=== PATIENT | male | born 1960 | race Hispanic/Latino ===

== ENCOUNTER 2024-12-02 16:25 | Emergency (ER) | payer OTHER ==
[2024-12-02] MEDS ORDERED: KETOROLAC 30 MG/ML INJ ONE (16:55)
--- NOTE | 2024-12-02 17:18 | RAD REPORT ---
EXAMINATION: Hip Left 2 View CLINICAL INDICATION: Male, 64 years old. PAIN COMPARISON: No prior exam. FINDINGS: No acute fracture. No malalignment/dislocation. Mild left acetabular degenerative changes. Other: n/a IMPRESSION: No acute osseous abnormality.
--- NOTE | 2024-12-02 17:19 | RAD REPORT ---
EXAMINATION: Pelvis CLINICAL INDICATION: Male, 64 years old. left groin pain COMPARISON: No prior exam. FINDINGS: No acute fracture. Presumed chronic deformity at the right femoral head with flattening and moderate right acetabular degenerative changes. There is some sclerosis at the right femoral head. No malalignment/dislocation. Other: n/a IMPRESSION: No acute osseous abnormality. Flattening right femoral head may be sequela of remote avascular necrosis and subchondral collapse.
[2024-12-02 17:38] LABS: Potassium 3.9 mEq/L (3.5-5.1)
[2024-12-02 17:39] LABS: Anion Gap 9.9 mEq/L (5.0-15.0); Bilirubin Total 0.5 mg/dL (0.2-1.0)
[2024-12-02 17:40] LABS: Albumin 2.9 g/dL (3.4-5.0); Albumin/Globulin Ratio 0.7 (1.1-1.8); Globulin 4.2 g/dL (2.3-3.5); Protein, Total 7.1 g/dL (6.4-8.2)
[2024-12-02 17:47] LABS: Hematocrit 38.9 % (39.6-49.0); Hemoglobin 13.3 g/dL (13.6-17.9); MCH 34.2 pg (27.0-35.0); MCHC 34.1 g/dL (32.0-36.0); MCV 100.3 fL (80-100); Platelets 288 thou/uL (152-406); RBC Red Blood Cell Count 3.88 M/uL (4.33-5.43)
[2024-12-02 17:48] LABS: Absolute Lymphocytes (CBC) 1.4 K/uL (0.7-4.9); Absolute Monocytes 0.5 K/uL (0.1-1.3); Absolute Neutrophil 4.8 K/uL (1.8-8.0); Basophils % 0.5 % (0-1.3); Eosinophils % 0.3 % (0-4.4); Lymphocytes % 20.5 % (15.3-44.8); Monocytes % 6.7 % (3.3-12.3)
--- NOTE | 2024-12-02 17:49 | RAD REPORT ---
EXAM: Lower Extremity Arterial Bilat HISTORY: SWELLING COMPARISON: None TECHNIQUE: Multiplanar grayscale and color Doppler images were obtained and a bilateral lower extrem ity arterial ultrasound. Spectral analysis of the Doppler waveforms were performed. FINDINGS: No significant calcified plaque is seen in either lower extremity. Right lower extremity: Common femoral artery: Triphasic Superficial femoral artery: Triphasic Popliteal artery: Triphasic Posterior tibial artery: Triphasic Dorsalis pedis artery: Triphasic Left lower extremity: Common femoral artery: Triphasic Superficial femoral artery: Triphasic Popliteal artery: Triphasic Posterior tibial artery: Triphasic Dorsalis pedis artery: Triphasic IMPRESSION: No significant arterial abnormality of the extremities.
--- NOTE | 2024-12-02 17:49 | RAD REPORT ---
EXAMINATION: US LOWER EXTREMITY VENOUS DOPPLER BILATERAL CLINICAL INDICATION: Male, 64 years old.Pain;Swelling TECHNIQUE: Complete bilateral duplex sonography of the lower extremity veins was performed. The exami nation included compression for vein patency, color Doppler imaging and flow augmentation in response to distal compression of the distal external iliac, common femoral, femoral, popliteal, alexy tera, tibial and great saphenous veins. [id number]. COMPARISON: No prior exams FINDINGS: Duplex sonography imaging demonstrates all deep examined to be fully compressible with spontaneous, p hasic and augmented flow bilaterally. IMPRESSION: No evidence of deep venous thrombosis seen in either lower extremity.
--- NOTE | 2024-12-02 18:56 | EDPHYS ---
Physician Documentation [facility] Name: Alvin Salazar Age: 64 yrs Sex: Male : 1960 Arrival Date: 12/02/2024 Time: 16:25 Bed 6 Private MD: ED Physician Giovanni Gordon HPI: 12/02 16:50 This 64 yrs old Male presents to ER via Ambulatory with complaints of Groin cp Pain, Leg Pain. 16:50 The patient presents with pain, that is acute. The complaints affect the left groin and cp left hip. 16:50 Context: resulted from an unknown cause, the patient can fully bear weight, the patient cp is able to ambulate, with mild difficulty, Problem is a result from a previous injury: No. Onset: The symptoms/episode began/occurred 4 week(s) ago. Associated signs and symptoms: Pertinent positives: calf tenderness, swelling, Pertinent negatives fever, warmth. 16:50 Severity of symptoms: in the emergency department the symptoms are unchanged, despite cp home interventions. Historical: - Allergies: 16:36 PENICILLINS; ll1 - PMHx: 16:36 Hypertensive disorder; ll1 - PSHx: 16:36 None; ll1 - Immunization history:: Adult Immunizations up to date. - Infectious Disease History:: Denies. - Social history:: Smoking status: Patient denies any tobacco usage or history of. ROS: 16:55 MS/extremity: Positive for pain, tenderness, of the left groin and left hip, Negative cp for decreased range of motion, deformity, paresthesias, injury, 16:55 Abdomen/GI: Negative for abdominal pain, cp 16:55 Eyes: Negative for injury, pain, redness, and discharge, cp 16:55 Constitutional: Negative for body aches, chills, fever, 16:55 ENT: Negative for drainage from ear(s), ear pain, sore throat, difficulty swallowing, difficulty handling secretions, 16:55 Respiratory: Negative for cough, shortness of breath, wheezing, 16:55 : Negative for urinary symptoms, 16:55 Neuro: Negative for weakness, 16:55 Back: Negative for pain at rest, pain with movement, cp 16:55 All other systems are negative, Exam: 17:00 Constitutional: The patient appears in no acute distress, alert, awake, non-toxic, well cp developed, well nourished, 17:00 Head/Face: Normocephalic, atraumatic. cp 17:00 Eyes: Periorbital structures: appear normal, Conjunctiva: normal, no exudate, no injection, Sclera: no appreciated abnormality, Lids and lashes: appear normal, bilaterally, 17:00 ENT: External ear(s): are unremarkable, Nose: is normal, Mouth: Lips: moist, Oral mucosa: moist, 17:00 Neck: ROM/movement: is normal, is supple, without pain, no range of motions limitations, 17:00 Chest/axilla: Inspection: normal, 17:00 Cardiovascular: Rate: normal, Rhythm: regular, 17:00 Respiratory: the patient does not display signs of respiratory distress, Respirations: cp normal, no use of accessory muscles, no retractions, 17:00 Abdomen/GI: Inspection: abdomen appears normal, Palpation: abdomen is soft and non-tender, in all quadrants, 17:00 Back: pain, is absent, ROM is normal, cp 17:00 Musculoskeletal/extremity: Extremities: noted in the left leg: pain, ROM: full passive range of motion, in the left hip, Joints: the left hip displays pain, tenderness, 17:00 Neuro: Orientation: to person, place \T\ time. Mentation: is normal, Gait: is steady, cp Vital Signs: 16:34 Weight 83.91 kg; Height 5 ft. 4 in. ; ll1 16:39 BP 134 / 89; Pulse 72; Resp 16; Temp 97.7(TE); Pulse Ox 99% on R/A; Pain 3/10; ss 16:41 Weight 83.91 kg; Height 5 ft. 4 in. ; ss 18:41 BP 130 / 91; Pulse 95; Resp 16; Pulse Ox 94% on R/A; ss 16:41 Body Mass Index 31.75 (83.91 kg, 162.56 cm) ss 16:39 Pain Scale: Adult ss MDM: 16:32 Medical Screening Exam initiated cp 17:00 Differential diagnosis: dislocation, fracture, DVT. cp 18:55 Data reviewed: vital signs, nurses notes, lab test result(s), radiologic studies, plain cp films, ultrasound, and as a result, I will discharge patient. 12/03 14:12 Care significantly affected by the following chronic conditions: Hypertension. cp Counseling: I had a detailed discussion with the patient and/or guardian regarding the historical points, exam findings, and any diagnostic results supporting the discharge/admit diagnosis, lab results, radiology results, the need for outpatient follow up, a orthopedic surgeon, to return to the emergency department if symptoms worsen or persist or if there are any questions or concerns that arise at home. Response to treatment: the patient's symptoms have mildly improved after treatment, and as a result, I will discharge patient. 12/02 16:44 Order name: Urinalysis W/Microscopic cp 12/02 16:44 Order name: CBC with Diff; Complete Time: 18:01 cp 12/02 18:02 Interpretation: Normal except: RBC 3.88; HGB 13.3; HCT 38.9; MCV 100.3. cp 12/02 16:44 Order name: CMP; Complete Time: 18:01 cp 12/02 18:43 Interpretation: Normal except: BUN 6; AST 14; ALT 12; ALK 155; ALB 2.9; GLOB 4.2; A/G cp 0.7. 12/02 16:44 Order name: Lipase; Complete Time: 18:01 cp 12/02 16:44 Order name: XRAY Pelvis; Complete Time: 18:01 cp 12/02 18:02 Interpretation: Report reviewed. cp 12/02 16:44 Order name: XRAY Hip LEFT 2 view; Complete Time: 18:01 cp 12/02 16:44 Order name: US Lower Extremity Arterial Bilateral; Complete Time: 18:01 cp 12/02 17:00 Order name: Extrem Venous W Compress Herman; Complete Time: 18:01 EDMS 12/02 16:44 Order name: IV Saline Lock; Complete Time: 16:58 cp 12/02 16:44 Order name: Labs collected and sent; Complete Time: 16:58 cp Administered Medications: 12/02 16:58 Drug: Ketorolac IVP 15 mg IVP once Route: IVP; Site: right forearm; bp 19:30 Follow up: Response: No adverse reaction [email or web address] Disposition: 12/03 09:06 Co-signature as Attending Physician, Giovanni Gordon MD I reviewed the patient's care rn provided by the Advanced Practice Provider and agree with the diagnosis and treatment plan. Disposition Summary: 12/02/24 18:56 Discharge Ordered Notes: Location: Home cp Problem: new cp Symptoms: have improved cp Condition: Stable cp Diagnosis - Pain in left hip cp - Pain in left leg cp Followup: cp - With: Juan Lundberg MD - When: 1 week - Reason: Recheck today's complaints Discharge Instructions: - Discharge Summary Sheet cp - Joint Pain cp - Musculoskeletal Pain cp - Hip Pain cp Forms: - Medication Reconciliation Form cp - Antibiotic Education cp - Prescription Opioid Use cp - Patient Portal Instructions cp - Leadership Thank You Letter cp Prescriptions: - Diclofenac Sodium 75 mg Oral Tablet Sustained Release - take 1 tablet ORAL route 2 times per day; 30 tablet; Refills: 0, Product cp Selection Permitted Signatures: Dispatcher [employer] EDMS Giovanni Gordon MD MD rn Alexis Trent PA PA cp Sadi Bansal RN RN Sabine Reyes RN RN ll1 Gosia Garcia RN RN [email or web address] Corrections: (The following items were deleted from the chart) 12/02 16:44 16:44 Lower Extremity Arterial Bilat+US.RAD.BRZ ordered. EDMS EDMS 16:44 16:44 Lower Extremity Arterial Bilat+US.RAD.BRZ ordered. EDMS EDMS 12/03 14:10 12/02 17:00 Back: pain, that is moderate, of the sacrum, cp cp 12/03 14:11 12/02 16:55 All other systems are negative, cp cp
--- NOTE | 2024-12-02 18:56 | ER ---
Nurse's Notes [facility] Name: Alvin Salazar Age: 64 yrs Sex: Male : 1960 Arrival Date: 12/02/2024 Time: 16:25 Bed 6 Private MD: Diagnosis: Pain in left hip;Pain in left leg Presentation: 12/02 16:34 Chief complaint: Patient states: L groin pain that radiates into knee area for 3-4 ll1 weeks. Noticed swelling to B ankles for 1 week. No fever. Coronavirus screen: Client denies travel out of the [place] in the last 14 days. At this time, the client does not indicate any symptoms associated with coronavirus-19. Ebola Screen: Patient denies travel to an Ebola-affected area in the 21 days before illness onset. Initial Sepsis Screen: Does the patient meet any 2 criteria? No. Patient's initial sepsis screen is negative. Does the patient have a suspected source of infection? No. Patient's initial sepsis screen is negative. Risk Assessment: Do you want to hurt yourself or someone else? Patient reports no desire to harm self or others. Onset of symptoms was November 01, 2024. 16:34 Method Of Arrival: Ambulatory ll1 16:34 Acuity: JIMMY 3 ll1 Triage Assessment: 16:36 General: Appears uncomfortable, Behavior is calm, cooperative, appropriate for age. ll1 Pain: Complains of pain in left leg. Musculoskeletal: Reports BLE swelling. Historical: - Allergies: 16:36 PENICILLINS; ll1 - PMHx: 16:36 Hypertensive disorder; ll1 - PSHx: 16:36 None; ll1 - Immunization history:: Adult Immunizations up to date. - Infectious Disease History:: Denies. - Social history:: Smoking status: Patient denies any tobacco usage or history of. Screenin:41 Abuse screen: Denies threats or abuse. Denies injuries from another. Nutritional ss screening: No deficits noted. Tuberculosis screening: Never had TB. 19:31 [facility] ED Fall Risk Assessment (Adult) Altered Elimination. jr13 19:33 [facility] ED Fall Risk Assessment (Adult) History of falling in the last 3 months, jr13 including since admission No falls in past 3 months (0 pts) Confusion or Disorientation No (0 pts) Intoxicated or Sedated No (0 pts) Impaired Gait No (0 pts) Mobility Assist Device Used No (0 pt) Score/Fall Risk Level 0 - 2 = Low Risk. Assessment: 16:41 General: Appears in no apparent distress. comfortable, Behavior is calm, cooperative, ss Denies fever, feeling ill, fatigue, chills. Pain: Complains of pain in L groin Pain radiates to L knee Pain currently is 3 out of 10 on a pain scale. Quality of pain is described as aching, tender, Pain began x 3-4 weeks Is continuous. Neuro: Level of Consciousness is awake, alert, obeys commands, Oriented to person, place, time, situation, Flag Signaler are equal bilaterally Speech is normal. Cardiovascular: Edema pitting to left ankle, right midcalf and right ankle. Respiratory: Airway is patent Respiratory effort is even, unlabored, Respiratory pattern is regular, symmetrical, Denies cough, shortness of breath labored breathing. GI: Patient currently denies abdominal pain, diarrhea, nausea, vomiting. : Denies burning with urination, urinary frequency. EENT: Nares are clear. Derm: Skin is intact, is healthy with good turgor, Skin is dry, Skin is pink, warm \T\ dry. normal. Vital Signs: 16:34 Weight 83.91 kg; Height 5 ft. 4 in. ; ll1 16:39 BP 134 / 89; Pulse 72; Resp 16; Temp 97.7(TE); Pulse Ox 99% on R/A; Pain 3/10; ss 16:41 Weight 83.91 kg; Height 5 ft. 4 in. ; ss 18:41 BP 130 / 91; Pulse 95; Resp 16; Pulse Ox 94% on R/A; ss 16:41 Body Mass Index 31.75 (83.91 kg, 162.56 cm) ss 16:39 Pain Scale: Adult ED Course: 16:29 Patient arrived in ED. im 16:30 Arm band placed on Patient placed in an exam room, on a stretcher. ll1 16:32 Alexis Trent PA is PHCP. cp 16:32 Giovanni Gordon MD is Attending Physician. cp 16:33 Sadi Bansal, PAULO is Primary Nurse. bp 16:35 Triage completed. ll1 16:41 Patient has correct armband on for positive identification. Bed in low position. Call ss light in reach. 16:58 Initial lab(s) drawn, by me, sent to lab. Urine collected: clean catch specimen, clear. bp Inserted saline lock: 20 gauge in right forearm, using aseptic technique. Blood collected. Flushed with 10 mL NS. 17:15 XRAY Pelvis In Process Unspecified. EDMS 17:15 XRAY Hip LEFT 2 view In Process Unspecified. EDMS 17:45 US Lower Extremity Arterial Bilateral In Process Unspecified. EDMS 17:45 Extrem Venous W Compress Herman In Process Unspecified. EDMS 18:54 Juan Lundberg MD is Referral Physician. cp 19:31 IV discontinued, intact, bleeding controlled, No redness/swelling at site. Pressure jr13 dressing applied. 19:32 No provider procedures requiring assistance completed. jr13 19:33 Provided Education on: Follow-up care with ortho.. jr13 Administered Medications: 16:58 Drug: Ketorolac IVP 15 mg IVP once Route: IVP; Site: right forearm; bp 19:30 Follow up: Response: No adverse reaction jr13 Medication: 16:41 VIS not applicable for this client. Outcome: 18:56 Discharge ordered by MD. cp 19:31 Discharged to home ambulatory, jr13 19:31 Condition: improved 19:31 Discharge instructions given to patient, Instructed on discharge instructions, follow up and referral plans. medication usage, Demonstrated understanding of instructions, follow-up care, medications, Prescriptions given X 1, 19:35 Patient left the ED. jr13 Signatures: Dispatcher [employer] Maliha Akins RN RN Alexis Azar PA PA cp Peltier, Brian, RN RN Sabine Reyes RN RN ll1 Bessy Kerr Jamike RN RN jr13
[2024-12-02 19:19] LABS: Specific Gravity 1.023 (1.005-1.030); Sqamous Epithelial <5 /HPF (None Seen); Urine Bacteria None Seen /HPF (<20); Urine Bilirubin NEGATIVE (Negative); Urine Blood Negative (Negative); Urine Clarity Clear (Clear); Urine Color Yellow (Yellow); Urine Culture Reflex Order NOT NEEDED; Urine Glucose NEGATIVE (Negative); Urine Ketones NEGATIVE (Negative); Urine Micro Reflex YN NO BILL MICROSCOPIC; Urine Nitrite NEGATIVE (Negative); Urine Protein NEGATIVE (Negative); Urine RBC <5 /HPF (None Seen); Urine Urobilinogen 1+ (Normal); Urine WBC <5 /HPF (<5); Urine pH 5.5 (5.0-7.0)
[2024-12-02 19:48] VITALS: TEMP 97.7
[2024-12-02 19:49] VITALS: BP 130/91; O2SAT 94
== END 2024-12-02 19:35 | disposition home or self-care (01) ==
LOC: ER 16:25
DX: M25.552 Pain in left hip (principal); M79.605 Pain in left leg; I10 Essential (primary) hypertension; Z88.0 Allergy status to penicillin
CPT/HCPCS: 36415; 72170; 80053; 81001; 83690; 85025; 93925; 93970; 96374; 99284